=== PATIENT | female | born 1985 | race Caucasian/White ===

== ENCOUNTER 2018-09-19 15:45 | Emergency (ER) | payer OTHER ==
--- NOTE | 2018-09-19 18:23 | ULT ---
ULTRASOUND WITH DOPPLER DUPLEX VENOUS LOWER EXTREMITY LEFT CPT: 52297 ICD-10-PCS: B54D HISTORY: Edema, patient. TECHNIQUE: Color flow Doppler, spectral waveform analysis of pulsed Doppler, and silva-scale imaging with shae mandi and augmentation, were used to evaluate the left common femoral, femoral, popliteal, posterior t ibial, and superficial femoral, veins; and the proximal portions of the profunda femoral and greater saphenous, veins. FINDINGS: There is appropriate compressibility and flow within the imaged deep vein system of the left lower ex tremity. IMPRESSION: No DVT. POS: C
[2018-09-20] MEDS ORDERED: EPINEPHrine 1 MG/10 ML Abboject SYRINGE ONE (07:46)
== END 2018-09-19 17:35 | disposition left against medical advice (07) ==
LOC: SCSER 15:45
DX: O99.89 Other specified diseases and conditions complicating pregnancy, childbirth and the puerperium (principal); R60.0 Localized edema; Z3A.13 13 weeks gestation of pregnancy

== ENCOUNTER 2018-11-15 12:03 | Outpatient (CLI) | payer OTHER ==
--- NOTE | 2018-11-15 14:41 | ULT ---
Complete obstetrical ultrasound INDICATION: Twin and evaluate anatomy TECHNIQUE: Grayscale, M-mode Doppler and Doppler images were obtained of the abdomen and pelvis to ev aluate the patient's known . COMPARISON: None. FINDINGS: Number of gestations: 2. Presentation: Twin A is in cephalic presentation; twin B is in transverse presentation and is situate d within the uterine cavity to the maternal left. Placental location: Twin A placenta is anterior in location without evidence of previa. Twin B placen ta is posterior and fundal in location without evidence of previa. Previa: No evidence for previa. Cervical length: 3.5 IFEANYI: twin A measures 7.9 cm and with twin B measures 16.4 cm heart rate: 149 bpm for twin A and 145 bpm for twin B. Twin A Biparietal diameter: 6.59cm, 26 weeks 4 days, Not calculated.. Head circumference: 24.42 cm, 26 weeks 4 days, Not calculated. Abdominal circumference: 21 cm, 25 weeks and 4 days, Not calculated. Femoral length: 4.74cm, 25 weeks 6 days, not calculated Estimated weight: 854 g +/- 126g 1 lb. 14 oz. +/- 4 ounces, Not calculated. SURVEY: head: Normal appearing. Cerebellum: Normal appearing. Cisterna magna: Normal appearing. Lateral ventricles: Normal appearing. 4 chamber heart: Normal appearing.. Stomach: Normal appearing. Kidneys: Not well seen Cord insertion: Normal appearing. Bladder: Normal appearing. Spine: Not well seen Lips and nose: Not well seen Extremities: Normal appearing. Three-vessel CORD: Normal appearing. The average gestational age by ultrasound is 26 weeks and 0 dayswith estimated due date of February 21, 2019. The estimated dates by clinical data is not providedwith estimated due date of not applicable. Twin B Biparietal diameter: 6.2 tocm, 25 weeks 2 days, Not calculated.. Head circumference: 23.45 cm, 25 weeks 3 days, Not calculated. Abdominal circumference: 20.97 cm, 25 weeks 4 days, Not calculated. Femoral length: 4.75cm, 25 weeks 6 days, not calculated Estimated weight: 833 g +/- 123g 1 lb. 13 oz. +/- 4 ounces, not calculated SURVEY: head: Normal appearing. Cerebellum: Normal appearing. Cisterna magna: Normal appearing. Lateral ventricles: Normal appearing. 4 chamber heart: Normal appearing.. Stomach: Normal appearing. Kidneys: Normal appearing Cord insertion: Normal appearing. Bladder: Normal appearing. Spine: Not well seen Lips and nose: Not well seen Extremities: Normal appearing. Three-vessel CORD: Normal appearing. The average gestational age by ultrasound is 25 weeks 3 dayswith estimated due date of February 25 9. IMPRESSION: 1. Live diamniotic dichorionic twin with size and dates as above. 2. The survey was limited due to the advanced gestational age of both fetuses. The spine, lips and nose were not well seen on twin B, whereas the kidneys, spine and lips and nose were not well seen on twin A. 3. The IFEANYI measured low on twin A of 7.9 cm. This is consistent with oligohydramnios. This is below t he 2. 5th percentile for age. Recommend repeat sonographic evaluation in one week to be reevaluate the IFEANYI level.
== END 2018-11-15 12:04 | disposition home or self-care (01) ==
LOC: SCSULT 12:03
PROVIDERS: ATTEND Nurse Practitioner
DX: Z34.82 Encounter for supervision of other normal pregnancy, second trimester (principal); Z3A.25 25 weeks gestation of pregnancy
CPT/HCPCS: 76810

== ENCOUNTER 2018-12-26 16:59 | Inpatient (IN) | payer OTHER ==
[2018-12-26 17:44] VITALS: BMI 27.3
[2018-12-26 18:22] LABS: #Eosinphils 0.4 thou/uL (0.0-0.7); #Lymphocytes 1.3 thou/uL (1.20-3.40); #Monocytes 0.4 thou/uL (0.11-0.59); #Neutrophils 15.4 thou/uL (1.40-6.50); %Basophils 0.2 % (0.0-1.0); %Eosinophils 2.4 % (0.0-10.0); %Lymphocytes 7.3 % (21.0-51.0); %Monocytes 2.4 % (0.0-10.0); %Neutrophils 87.7 % (42.0-75.0); Mean Corpuscular HGB CONC 33.9 g/dL (32.0-36.0); Mean Corpuscular Hemoglobin 30.5 pg (27.0-31.0); Mean Corpuscular Volume 89.9 fL (78.0-98.0); Mean Platelet Volume 7.2 fL (7.4-10.4); Platelet Count 280 thou/uL (130-400); RBC Distribution Width 13.1 % (11.5-14.5); Red Blood Cell (RBC) Count 3.61 mill/uL (4.20-5.40); White Blood Cell (WBC) Count 17.6 thou/uL (4.8-10.8)
[2018-12-26 18:50] LABS: ALT (SGPT) 16 U/L (8-55); AST (SGOT) 19 U/L (5-34); Alkaline Phosphatase 246 U/L (40-150); Anion Gap 12 mmol/L (10-20); BUN (Urea Nitrogen) 12 mg/dL (7.0-18.7); Bilirubin, Total 0.2 mg/dL (0.2-1.2); Calc. Creatinine Clearance 129 mL/min (70-130); Calcium 9.5 mg/dL (7.8-10.44); Carbon Dioxide 20 mmol/L (22-29); Chloride 107 mmol/L (98-107); Estimated GFR-MDRD 85; Globulin 3.1 g/dL (2.4-3.5); Glucose 97 mg/dL (70-105); Potassium 4.4 mmol/L (3.5-5.1); Protein, Total 6.1 g/dL (6.0-8.3); Sodium 135 mmol/L (136-145)
[2018-12-26] MEDS ORDERED: hydrALAZINE 20 MG/ML VIAL SLOW IVP PRN ×2 (18:50→19:00)
[2018-12-26] MEDS ORDERED: Promethazine HCl 25 MG/ML VIAL IM PRN (18:50)
[2018-12-26] MEDS ORDERED: Acetaminophen 500 MG TAB PO PRN (18:50)
[2018-12-26] MEDS ORDERED: Ondansetron PF 4 MG/2 ML Vial IVP PRN (18:50)
[2018-12-26] MEDS ORDERED: Lactated Ringer's 1,000 ML IV SCH (19:00)
[2018-12-27] MEDS ORDERED: Calcium Carbonate 500 MG ChewTAB PO PRN (03:02)
[2018-12-27] MEDS ORDERED: Famotidine 20 MG TAB PO SCH ×2 (07:00→09:00)
[2018-12-27] MEDS ORDERED: Betamet Acet/Betamet Na Ph 30 MG/5 ML VIAL IM SCH (16:00)
[2018-12-27 18:23] LABS: Urine Total Volume 2150 mL (600-1600)
[2018-12-27 18:46] LABS: Protein, Urine Less than 10 mg/dL (1-14)
== END 2018-12-28 08:40 | disposition home health service (06) | DRG 833 ==
LOC: L&D/OP 16:59 → L&D 12-27 00:53
PROVIDERS: ADMIT Family Medicine; ATTEND Family Medicine
DX: O30.043 Twin pregnancy, dichorionic/diamniotic, third trimester (principal); O99.333 Smoking (tobacco) complicating pregnancy, third trimester; F17.200 Nicotine dependence, unspecified, uncomplicated; Z3A.32 32 weeks gestation of pregnancy; O26.893 Other specified pregnancy related conditions, third trimester; R03.0 Elevated blood-pressure reading, without diagnosis of hypertension
CPT/HCPCS: 36415; 80053; 84156; 85025; J0702

== ENCOUNTER 2018-12-28 23:50 | Day surgery (SDC) | payer OTHER ==
[2018-12-29 00:33] VITALS: BP 153/84; TEMP 98; BMI 27.3
[2018-12-29] MEDS ORDERED: hydrALAZINE 20 MG/ML VIAL SLOW IVP PRN (01:16)
--- NOTE | 2018-12-29 02:07 | PRG ---
DATE OF SERVICE: 12/29/2018 TIME OF SERVICE: 0115. PRESENTING COMPLAINT: Shortness of breath at 32-4/7th weeks gestation. HISTORY OF PRESENT ILLNESS: Ms. Fernández is a G2, P1, patient of Dr. Fadi Weeks. No antepartum record is available on the unit. The patient was present on the unit yesterday and had a thorough workup for high blood pressure. She was discharged home by Dr. Weeks with notation of a slightly elevated white count, hematocrit of 32%, normal platelets, normal creatinine, normal LFTs, and a total protein of 24-hour urine of less than 10. She presents tonight stating that she received some H2 blockers and took a dose this evening; however, she had a big meal and then suddenly felt short of breath. She reports fetus is active. She denies contractions. ONCOLOGY ACCOUNT SPECIALIST HISTORY: x1. Denies any other history. Again, antepartum record not available on the unit. PAST SURGICAL HISTORY: Jaw surgery. PAST MEDICAL HISTORY: None. ALLERGIES: DENIES. MEDICATIONS: vitamins. SOCIAL HISTORY: The patient is a tobacco user during . Denies alcohol or IV drugs. FAMILY HISTORY: Noncontributory. REVIEW OF SYSTEMS: Noncontributory. PHYSICAL EXAMINATION: GENERAL: White female. VITAL SIGNS: Pulse 73, respirations 18, temperature 98.0, blood pressure 153/83. HEENT: Within normal limits. LUNGS: Clear to auscultation bilaterally. HEART: Regular rate and rhythm. ABDOMEN: Soft and nontender. She has no CVA tenderness. PELVIC: Deferred. FHTs revealed a category 1 strip with FHTs in the 140s. No contractions or D cells are noted. PLANS: Discussed with the patient the need to further observe with blood pressures. The patient stated she did not want to stay or have any blood work done or IVs performed. We discussed her options including signing out AMA. I discussed with the patient that she needed to follow up with Dr. Weeks for her symptoms first thing in the morning and that we feel comfortable discharging her with ER precautions to return for headache, blurred vision, scotoma, or right upper quadrant pain. The patient expressed understanding. Job ID: [id number]
== END 2018-12-29 01:25 | disposition home or self-care (01) ==
LOC: L&D/OP 23:50
PROVIDERS: ATTEND Family Medicine
DX: O99.89 Other specified diseases and conditions complicating pregnancy, childbirth and the puerperium (principal); R06.02 Shortness of breath; O99.333 Smoking (tobacco) complicating pregnancy, third trimester; F17.290 Nicotine dependence, other tobacco product, uncomplicated; Z3A.32 32 weeks gestation of pregnancy
CPT/HCPCS: 99282

== ENCOUNTER 2018-12-29 10:27 | Inpatient (IN) | payer OTHER ==
--- NOTE | 2018-12-29 11:14 | RAD ---
PORTABLE CHEST: HISTORY: Right flank pain. Shortness of breath. FINDINGS: Heart size and mediastinum are within normal limits. There are patchy alveolar infiltrates, which ar e more perihilar in location and more upper lobe predominant. Changes are more suggestive of a pneum onic type process rather than pulmonary edema. IMPRESSION: Patchy bilateral alveolar infiltrates, most suggestive of pneumonia. Pulmonary edema would be a cons ideration. POS: CET
[2018-12-29 11:20] LABS: Hemoglobin 9.8 g/dL (12.0-16.0); Mean Corpuscular HGB CONC 33.3 g/dL (32.0-36.0); Mean Corpuscular Hemoglobin 30.6 pg (27.0-31.0); Mean Corpuscular Volume 91.7 fL (78.0-98.0); Mean Platelet Volume 7.5 fL (7.4-10.4); Platelet Count 294 thou/uL (130-400); RBC Distribution Width 13.4 % (11.5-14.5); Red Blood Cell (RBC) Count 3.19 mill/uL (4.20-5.40)
[2018-12-29 11:39] LABS: ALT (SGPT) 28 U/L (8-55); AST (SGOT) 37 U/L (5-34); Alkaline Phosphatase 219 U/L (40-150); Anion Gap 14 mmol/L (10-20); BUN (Urea Nitrogen) 13 mg/dL (7.0-18.7); Bilirubin, Total 0.3 mg/dL (0.2-1.2); CK (CPK) 71 U/L (29-168); Calc. Creatinine Clearance 0 mL/min (70-130); Calcium 8.2 mg/dL (7.8-10.44); Carbon Dioxide 16 mmol/L (22-29); Chloride 111 mmol/L (98-107); Estimated GFR-MDRD Greater than 90; Globulin 2.5 g/dL (2.4-3.5); Glucose 72 mg/dL (70-105); Lipase 103 U/L (8-78); Potassium 4.2 mmol/L (3.5-5.1); Protein, Total 5.5 g/dL (6.0-8.3); Sodium 137 mmol/L (136-145)
[2018-12-29] MEDS ORDERED: Acetaminophen 500 MG TAB ONE (11:39)
[2018-12-29 11:41] LABS: Band 10 % (5-11); Eosinophils 1 % (0-10); Lymphocytes 7 % (21-51); MDiff Complete? YES; Metamyelocyte 4 % (0-0); Monocytes 2 % (0-10); Myelocyte 8 % (0-0); Neutrophil 68 % (42-75); Nucleated RBC 3 % (0); Platelet Morphology Comment Appears Adequate; Polychromasia MODERATE = 3-4 cells (100X) (0-2/hpf); White Blood Cell (WBC) Count 26.6 thou/uL (4.8-10.8)
[2018-12-29 11:56] LABS: Bilirubin Negative (Negative); Blood, Urine Negative (Negative); Clarity CLOUDY (Clear); Glucose, Urine (Dipstick) Negative (Negative); Leukocyte Small (Negative); Nitrite Negative (Negative); Protein, Urine (Dipstick) 30 mg/dL (Neg-Trace); Specific Gravity, Urine 1.022 (1.002-1.036); Urobilinogen 0.2 mg/dL (0.2-1.0)
[2018-12-29 11:57] LABS: CKMB 5.8 ng/mL (0-6.6)
[2018-12-29 11:58] LABS: Hyaline Casts/LPF 4-6 HYALINE CAST LPF (0-3 Hyaline)
[2018-12-29 12:07] LABS: Yeast-AUWi Flag 63.5 (0-25.0)
[2018-12-29 12:22] LABS: Bacteria/HPF 2+ HPF (None Seen); RBC/HPF 0-3 HPF (0-3); Yeast-All Forms None Seen HPF (None Seen)
[2018-12-29] MEDS ORDERED: hydrALAZINE 20 MG/ML VIAL ONE ×2 (12:45→14:20)
[2018-12-29] MEDS ORDERED: Furosemide 20 MG/2 ML VIAL ONE (12:45)
[2018-12-29] MEDS ORDERED: Magnesium 2 GM/50 ML BAG (IN WATER) ONE (12:45)
[2018-12-29] MEDS ORDERED: Magnesium Sulfate 20 gm/500 ml 20 GM/500 ML BAG ONE (13:43)
[2018-12-29] MEDS ORDERED: Bicitra 30 ML UDCUP ONE (13:44)
[2018-12-29] MEDS ORDERED: Fentanyl 100 MCG/2 ML VIAL ONE (13:57)
[2018-12-29] MEDS ORDERED: MORPHINE 5 MG/10 ML PF VIAL ONE (13:58)
[2018-12-29] MEDS ORDERED: Ondansetron PF 4 MG/2 ML Vial ONE (13:58)
[2018-12-29] MEDS ORDERED: Dexamethasone 4 mg/ml Vial ONE (13:58)
[2018-12-29] MEDS ORDERED: Ketorolac Tromethamine 30 MG/ML VIAL ONE ×3 (13:58→16:36)
[2018-12-29] MEDS ORDERED: Oxytocin 10 UNITS/ML VIAL ONE (13:58)
[2018-12-29] MEDS ORDERED: Phenylephrine HCL 10 MG/ML VIAL ONE (13:58)
[2018-12-29] MEDS ORDERED: ePHEDrine/0.9% NaCl/PF SYRINGE 50 mg/10 ml ONE (13:58)
[2018-12-29] MEDS ORDERED: Promethazine HCl 25 MG/ML VIAL IM PRN ×3 (13:59→18:21)
[2018-12-29] MEDS ORDERED: hydrALAZINE 20 MG/ML VIAL SLOW IVP PRN ×2 (13:59→18:21)
[2018-12-29] MEDS ORDERED: Ondansetron PF 4 MG/2 ML Vial IVP PRN ×3 (13:59→18:21)
[2018-12-29] MEDS ORDERED: Lactated Ringer's 1,000 ML IV SCH (14:00)
[2018-12-29] MEDS ORDERED: Calcium Gluc 4.6 MEQ/10 ML (100 MG/ML) SLOW IVP PRN (14:03)
[2018-12-29] MEDS: Magnesium Sulfate 20 gm/500 ml 20 GM/500 ML BAG IVPB SCH (14:20)
[2018-12-29] MEDS ORDERED: CEFAZOLIN 2 GM in Premix Bag 1 BAG IVPB SCH (14:30)
[2018-12-29] MEDS ORDERED: Bicitra 30 ML UDCUP PO SCH (14:30)
[2018-12-29 15:31] LABS: HBSAg Index 0.25 S/CO (0-0.99); Hep B Surf Ag Non-Reactive S/CO (NonReactive); Syphilis Antibody Nonreactive (Nonreactive); Syphilis Antibody Index 0.03 S/CO (<1.00 Non-Reactive)
[2018-12-29] MEDS ORDERED: Naloxone HCl 0.4 mg/ml Vial IVP PRN ×2 (15:50)
[2018-12-29] MEDS ORDERED: Promethazine HCl 25 MG SUPP PR PRN (15:50)
[2018-12-29] MEDS ORDERED: Naloxone HCl 0.4 mg/ml Vial IV PRN (15:50)
[2018-12-29] MEDS ORDERED: diphenhydrAMINE 50 MG/ML VIAL IVP PRN (15:50)
[2018-12-29] MEDS ORDERED: Communication Order-Pharmacy FS SCH (16:00)
[2018-12-29 16:31] VITALS: BMI 21.6
[2018-12-29] MEDS ORDERED: PHENYLEPHRINE-NS 100 MCG/ML 10 ML SYRINGE ONE (16:35)
[2018-12-29] MEDS ORDERED: ePHEDrine 50 MG/ML VIAL ONE (16:35)
[2018-12-29] MEDS ORDERED: Morphine 4 MG/ML VIAL ONE (16:36)
[2018-12-29] MEDS: Ketorolac Tromethamine 30 MG/ML VIAL IVP SCH (16:39)
[2018-12-29] MEDS: Morphine 4 MG/ML VIAL SLOW IVP PRN ×2 (16:42→23:55)
[2018-12-29] MEDS ORDERED: Lanolin Ointment 7 GM TUBE TOP PRN (18:21)
[2018-12-29] MEDS ORDERED: Magnesium Sulfate 20 gm/500 ml 20 GM/500 ML BAG IVPB SCH (18:21)
[2018-12-29] MEDS ORDERED: Meperidine HCl/PF 25 MG/ML VIAL IM PRN (18:21)
[2018-12-29] MEDS ORDERED: HYDROcodone/Acetaminophen 5/325 mg Tablet PO PRN (18:21)
[2018-12-29] MEDS ORDERED: Calcium Gluconate 4.6 MEQ in Sodium Chloride 0.9% 100 ML IVPB PRN (18:21)
[2018-12-29] MEDS ORDERED: Adacel (T-DAP) 0.5 ML SYRINGE IM ONE (18:21)
[2018-12-29] MEDS ORDERED: NS / Oxytocin 40 units/1000ml 1,000 ML IV SCH (18:21)
[2018-12-29] MEDS ORDERED: Bisacodyl 10 MG SUPP PR PRN (18:21)
[2018-12-29] MEDS ORDERED: diphenhydrAMINE 25 MG CAP PO PRN (18:21)
[2018-12-29 22:43] LABS: HIV (1/2) Antibody/Antigen Non-Reactive (NonReactive); HIV 1/2 INDEX 0.11 S/CO (<1.00)
[2018-12-30 07:42] LABS: Hemoglobin 9.3 g/dL (12.0-16.0); Mean Corpuscular HGB CONC 33.3 g/dL (32.0-36.0); Mean Corpuscular Volume 90.2 fL (78.0-98.0); Mean Platelet Volume 7.3 fL (7.4-10.4); Platelet Count 288 thou/uL (130-400); RBC Distribution Width 13.4 % (11.5-14.5); Red Blood Cell (RBC) Count 3.09 mill/uL (4.20-5.40); White Blood Cell (WBC) Count 26.1 thou/uL (4.8-10.8)
[2018-12-30] MEDS: Magnesium Sulfate 20 gm/500 ml 20 GM/500 ML BAG IVPB SCH (08:38)
[2018-12-30] MEDS ORDERED: hydrALAZINE 20 MG/ML VIAL SLOW IVP PRN ×2 (10:15→10:51)
--- NOTE | 2018-12-30 11:22 | EKG ---
Test Reason : Blood Pressure : / mmHG Vent. Rate : 090 BPM Atrial Rate : 090 BPM P-R Int : 136 ms QRS Dur : 074 ms QT Int : 348 ms P-R-T Axes : 048 069 051 degrees QTc Int : 425 ms Normal sinus rhythm Normal ECG Confirmed by NELLY MURPHY DO ([id number]), make up editor CHELSIE CERVANTES ([id number]) on 12/30/2018 11:21:45 AM Referred By: Confirmed By:NELLY MURPHY DO
[2018-12-30] MEDS ORDERED: hydrALAZINE 20 MG/ML VIAL ONE (11:32)
[2018-12-30] MEDS: Ketorolac Tromethamine 30 MG/ML VIAL IVP SCH (17:26)
[2018-12-30] MEDS: Docusate Calcium (SURFAK) 240 MG CAP PO SCH ×2 (17:27→21:24)
[2018-12-30] MEDS: Prenatal Vitamin 1 TAB PO SCH (17:27)
[2018-12-30] MEDS ORDERED: Naloxone HCl 0.4 mg/ml Vial ONE (17:52)
[2018-12-30] MEDS: Ibuprofen 800 MG TAB PO SCH (21:24)
[2018-12-30] MEDS: Simethicone Chewable 80 MG TAB PO PRN (21:25)
[2018-12-30] MEDS: cloNIDine 0.1 MG TAB PO PRN (21:26)
[2018-12-30] MEDS ORDERED: Sodium Chloride 0.9% 10 ML ONE (23:01)
[2018-12-31] MEDS: HYDROcodone/Acetaminophen 5/325 mg Tablet PO PRN ×5 (02:20→20:40)
--- NOTE | 2018-12-31 03:10 | DN ---
DATE OF PROCEDURE: 12/29/2018 PRIMARY SURGEON: Fadi Weeks MD [facility] SURGEON: Anuja Cuba MD, PGY-3 PROCEDURE PERFORMED: Primary low transverse section. PREOPERATIVE DIAGNOSES: 1. diamniotic-dichorionic twin . 2. Preeclampsia with severe features, pulmonary edema. 3. Remote from delivery. POSTOPERATIVE DIAGNOSIS: diamniotic-dichorionic twin , status post primary low transverse section. ANESTHESIA: Spinal. INDICATIONS: The patient is a 33-year-old at 32.4 weeks' gestation, who was found to have preeclampsia with severe features and twin gestation, who was dispositioned for a primary section. DESCRIPTION OF PROCEDURE: After risks, benefits, and alternatives were explained to the patient, she gave informed consent. Preoperative antibiotics included cefazolin 2 g IV. The patient was taken to the operating room, and spinal anesthesia was initiated. She was placed in supine position with left tilt and prepped and draped in the usual sterile fashion. A Pfannenstiel incision was made with a scalpel and carried down to the level of the fascia, which was sharply nicked. The fascial cut was extended bilaterally with Goldman scissors. The inferior and superior edges of the cut fascial edges were elevated with Zi clamps, and underlying rectus muscles were sharply and bluntly dissected free. The recti were divided digitally and retracted manually. The peritoneum was entered bluntly and retracted manually. An Jaspreet O was placed. A low transverse score was made with a scalpel, and the uterus was entered in the midline with the scalpel. Clear fluid was seen upon entry of both amniotic sacs. The hysterotomy was extended manually. Twin A was noted to be breech and easily delivered with light fundal pressure. Mouth and nares were bulb suctioned. Cord clamped and cut, and grossly normal female infant was handed to the waiting nurse. Cord blood was obtained. The placenta was left as the second twin was noted to be vertex and easily delivered by fundal pressure. Mouth and nares were bulb suctioned. Cord was clamped and cut, and grossly normal male was handed to the waiting nurse. Cord blood was obtained. Both placentas were manually extracted and found to be intact with three-vessel cords noted. The hysterotomy was closed with running locking 0 Vicryl suture x2 with an imbricating layer. Following this, hemostasis was noted. The abdomen was irrigated with saline and suctioned free of clots. The uterus and hysterotomy were again noted to be hemostatic. The Jaspreet O was removed. The peritoneum was closed with running nonlocking 3-0 Vicryl suture. The fascia was closed with running nonlocking 0 PDS suture x2. The subcutaneous tissue was approximated with three interrupted 3-0 plain gut sutures. The skin was approximated with yasir, and a pressure dressing was placed. All counts were correct. The patient tolerated the procedure well and taken to recovery room in stable condition. ESTIMATED BLOOD LOSS: 600 mL. COMPLICATIONS: None. SPECIMENS: Cord blood sent to lab for blood type. FINDINGS: Grossly normal male and female twins, who were transferred to the NICU upon delivery. Grossly normal placentas, which were sent to Pathology for evaluation. DRAINS: Garcia to gravity, draining clear urine. Job ID: [id number] MTDD
[2018-12-31] MEDS: Ibuprofen 800 MG TAB PO SCH ×3 (05:00→21:41)
[2018-12-31] MEDS: Prenatal Vitamin 1 TAB PO SCH (08:01)
[2018-12-31] MEDS: Docusate Calcium (SURFAK) 240 MG CAP PO SCH ×2 (08:01→20:40)
[2018-12-31] MEDS: cloNIDine 0.1 MG TAB PO PRN ×3 (08:01→20:39)
[2018-12-31] MEDS: Losartan/Hydrochlorothiazide 100 mg/25 mg Tablet PO SCH (08:52)
[2018-12-31] MEDS: Simethicone Chewable 80 MG TAB PO PRN ×2 (12:17→17:57)
[2018-12-31] MEDS: Carvedilol 3.125 MG TAB PO SCH ×2 (14:01→17:57)
[2018-12-31] MEDS ORDERED: Sodium Chloride 0.9% 10 ML ONE (20:35)
[2019-01-01] MEDS: Simethicone Chewable 80 MG TAB PO PRN ×3 (00:22→12:13)
[2019-01-01] MEDS: cloNIDine 0.1 MG TAB PO PRN ×2 (00:22→10:10)
[2019-01-01] MEDS: HYDROcodone/Acetaminophen 5/325 mg Tablet PO PRN ×4 (02:47→15:55)
[2019-01-01] MEDS: Ibuprofen 800 MG TAB PO SCH ×2 (05:47→13:56)
[2019-01-01] MEDS: Prenatal Vitamin 1 TAB PO SCH (09:15)
[2019-01-01] MEDS: Docusate Calcium (SURFAK) 240 MG CAP PO SCH (09:15)
[2019-01-01] MEDS: Losartan/Hydrochlorothiazide 100 mg/25 mg Tablet PO SCH (09:17)
[2019-01-01] MEDS: Carvedilol 3.125 MG TAB PO SCH (09:17)
[2019-01-01 12:36] VITALS: BP 134/64; TEMP 98.2
== END 2019-01-01 16:50 | disposition home or self-care (01) | DRG 787 ==
LOC: ERS 10:27 → L&D 13:39 → 3SW 12-30 21:02
PROVIDERS: ADMIT Family Medicine; ATTEND Family Medicine
PROC: 10D00Z1 Extraction of Products of Conception, Low, Open Approach (ICD-10-PCS; principal; 2018-12-29)
DX: O30.043 Twin pregnancy, dichorionic/diamniotic, third trimester (principal); J81.1 Chronic pulmonary edema; O14.14 Severe pre-eclampsia complicating childbirth; Z37.2 Twins, both liveborn; Z3A.32 32 weeks gestation of pregnancy; O99.52 Diseases of the respiratory system complicating childbirth
CPT/HCPCS: 36415; 51702; 71045; 80053; 81003; 81015; 82550; 82553; 83690; 83735; 83880; 84484; 85025; 85027; 85461; 86780; 86850; 86870; 86900; 86901; 87340; 87389; 88307; 90384; 90715; 93005; 93306; 96365; 96372; 96375; 99282; J0131; J0360; J0690; J1100; J1885; J1940; J2175; J2270; J2274; J2310; J2370; J2405; J2590; J3010; J3475; J3490